=== PATIENT | male | born 1965 ===

== ENCOUNTER 2018-01-15 10:47 | Emergency (ER) | payer BC ==
[2018-01-15 10:48] VITALS: BMI 29.5
[2018-01-15 10:50] VITALS: BP 131/82; PULSE 64; RESP 20; TEMP 98.6; O2SAT 96
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
== END 2018-01-15 15:20 | disposition home or self-care (01) ==
LOC: SUPCPDRO 10:47 → H.ER 10:47
DX: F32.9 Major depressive disorder, single episode, unspecified (principal); Z95.1 Presence of aortocoronary bypass graft